=== PATIENT | male | born 1955 | race African-American/Black ===

== ENCOUNTER 2016-11-25 14:59 | Emergency (ER) | payer OTHER ==
[~2016-11-25] VITALS: Ht 175.3 cm; Wt 79.4 kg
[2016-11-25] MEDS ORDERED: IBUPROFEN600 MG ORAL (16:16)
[2016-11-25 16:29] VITALS: BP 163/86
--- NOTE | 2016-11-25 17:10 | Diagnostic Imaging Report ---
Indications: Right knee pain Technique: 3 views of the right knee Findings: Comparison: None No fracture, dislocation, lytic destruction, periosteal reaction, joint space widening or effusion, surrounding soft tissue abnormality, or other acute changes demonstrated. Spur emanates from patellar superior pole and region of quadriceps tendon insertion. No additional deformity, alignment abnormality, arthritic change, soft tissue calcification, or other chronic changes demonstrated. IMPRESSION: Patellar enthesophyte Otherwise negative right knee series.
--- NOTE | 2016-11-25 21:40 | Emergency Room Report ---
History of Present Illness General Chief Complaint: Pain Source: Patient Present Illness HPI The patient is a 61-year-old male presenting with right knee pain which began one week prior for no known reason. Pain is described as an 8 of 10 dull ache to the back of the knee. Pain worse with movement such as walking. Patient denies any radiating pain. Pain is relieved with rest. The patient denies any numbness or tingling of the extremity. Patient denies any rash. Patient denies other symptoms including fever, chills, leg swelling Allergies: Uncoded Allergies: SULFA (Allergy, Unknown, 11/25/16) Patient History Past Medical History: see triage record Pertinent Family History: none Reviewed Nursing Documentation: PMH: Agreed, PSxH: Agreed Nursing Documentation-PMH Hx Hypertension: Yes Hx Diabetes: Yes Review of Systems All Other Systems: negative except mentioned in HPI Physical Exam Vital Signs Date Time Temp Pulse Resp B/P Pulse Ox O2 Delivery O2 Flow Rate FiO2 11/25/16 15:43 98.6 79 16 163/86 97 Room Air Sp02 EP Interpretation: reviewed, normal General Appearance: no apparent distress, alert, GCS 15, non-toxic Head: normocephalic, atraumatic Eyes: bilateral eye PERRL, bilateral eye normal inspection ENT: hearing grossly normal, normal pharynx, no angioedema, normal voice Musculoskeletal: back normal, gait/station normal, normal range of motion, tender - R posterior knee Neurologic: alert, oriented x3, responsive, motor strength/tone normal, sensory intact, speech normal Psychiatric: judgement/insight normal, memory normal, mood/affect normal, no suicidal/homicidal ideation Reflexes: 3+ bicep (R), 3+ bicep (L), 3+ tricep (R), 3+ tricep (L), 3+ knee (R) , 3+ knee (L) Skin: normal color, no rash, warm/dry, well hydrated Lymphatic: no adenopathy Procedures Splinting Splinting : Consent: Verbal Location: R knee Pre-Made Type: NATALIE wrap Pre-Proc Neuro Vasc Exam: normal Post-Proc Neuro Vasc Exam: normal Patient Tolerated: Well Complications: None Medical Decision Making PA Attestation Dr. Bryant is my supervising physician. Patient management was discussed with my supervising physician Diagnostic Impression: Primary Impression: Knee strain ER Course The patient is a 61-year-old male presenting with right knee pain Ddx considered include but not limited to sprain/strain, fracture, contusion, bursitis Physical exam: Vitals within normal limits her no apparent distress Right knee: No obvious deformity. No laxity. No edema or ecchymosis. Tenderness to palpation over posterior knee only. X-ray of the knee is unremarkable NATALIE wrap is placed over right knee the patient is given Motrin for pain ER precautions given and pt is DC'ed home Other X-Ray Diagnostic Results Other X-Ray Diagnostic Results : X-Ray Ordered: R knee Date: Nov 25, 2016 EP Interpretation: Yes Findings: no fractures, no dislocation, no soft tissue swelling Number of Views: 3 PA Scribe Text I am acting as scribe for my supervising physician. My supervising physician's interpretation of the R knee xrays are there are no fractures, dislocations or soft tissue swelling. Last Vital Signs Date Time Temp Pulse Resp B/P Pulse Ox O2 Delivery O2 Flow Rate FiO2 11/25/16 16:29 98.6 16 163/86 97 Room Air 11/25/16 15:43 79 Status: improved Disposition: HOME, SELF-CARE Condition: Improved Scripts Ibuprofen* (MOTRIN*) 600 Mg Tablet 600 MG ORAL Q8H Y for For Pain, #30 TAB 0 Refills Prov: BRAD DAVISON 11/25/16 Referrals: VIBHA BENÍTEZ,REFERRING (PCP) Patient Instructions: Knee Pain Additional Instructions: I discussed my findings with the patient. All questions and concerns have been answered. Treatment and medication compliance have been addressed. I advised the patient that they need to follow up with PMD in 3-5 days. Return to ED if pain remains or worsens, numbness or tingling occurs, new rash is noticed, fever is noticed, or if needed for any reason. Patient verbalized understanding of discharge instructions. BRAD DAVISON Nov 25, 2016 21:40
== END 2016-11-25 16:29 | disposition home or self-care (01) ==
LOC: EMR 15:43
DX: S86.811A Strain of other muscle(s) and tendon(s) at lower leg level, right leg, initial encounter (principal); X58.XXXA Exposure to other specified factors, initial encounter; Y93.9 Activity, unspecified; Y92.9 Unspecified place or not applicable; I10 Essential (primary) hypertension; E11.9 Type 2 diabetes mellitus without complications; Z88.2 Allergy status to sulfonamides
CPT/HCPCS: 29530; 99283